=== PATIENT | male | born 2000 | race Hispanic/Latino ===

== ENCOUNTER 2019-01-22 07:54 | Day surgery (SDC) | payer OTHER ==
[2019-01-21 16:14] LABS: BASOPHILS % (AUTO) 0.3 % (0.0-5.0); EOSINOPHILS % (AUTO) 3.3 % (0.0-8.0); HEMATOCRIT 44.6 % (42-54); LYMPHOCYTES % (AUTO) 22.6 % (21.0-51.0); MEAN CORPUSCULAR HEMOGLOBIN 28.3 pg (27.0-33.0); MEAN CORPUSCULAR HGB CONC 33.8 g/dL (32.0-36.0); MEAN CORPUSCULAR VOLUME 83.9 fL (80-100); MONOCYTES % (AUTO) 8.4 % (3.0-13.0); NEUTROPHILS % (AUTO) 65.4 % (40.0-77.0); PLATELET COUNT (AUTO) 205 K/uL (130-400); RED BLOOD CELL COUNT(AUTO) 5.32 MIL/uL (4.50-6.20); RED CELL DISTRIBUTION WIDTH 13.6 % (11.0-15.5); WHITE BLOOD COUNT (AUTO) 9.1 K/uL (4.8-10.8)
[2019-01-21 16:23] LABS: CREATININE 1.1 mg/dL (0.5-1.5); POTASSIUM 4.6 mmol/L (3.5-5.1)
[2019-01-21 17:11] VITALS: BP 136/64
[~2019-01-22] VITALS: Ht 162.6 cm; Wt 97.3 kg
[2019-01-22] VITALS (17 sets, daily range): BP systolic 98–144; BP diastolic 46–86
[2019-01-22] MEDS: CEFAZOLIN SODIUM 1 GM VIAL IVP SCH ×2 (10:00→13:00)
[2019-01-22] MEDS ORDERED: LACTATED RINGERS 1000ML 1,000 ML IV ONE (10:17)
[2019-01-22] MEDS ORDERED: FENTANYL CITRATE PF 50 MCG/1 ML 2ML VIAL ONE ×2 (10:53→14:39)
[2019-01-22] MEDS ORDERED: PROPOFOL 10 MG/ML 20ML VIAL IV ONE (10:53)
[2019-01-22] MEDS ORDERED: LIDOCAINE PF 2% 5ML ABBOJECT ONE (10:53)
[2019-01-22] MEDS ORDERED: ROPIVACAINE 0.5% 5MG/ML 30ML IJ ONE (10:53)
[2019-01-22] MEDS ORDERED: CEFAZOLIN SODIUM 1 GM VIAL ONE (11:08)
[2019-01-22] MEDS ORDERED: BUPIVACAINE/EPI/PF 0.25% 30ML VIAL IJ ONE (11:08)
[2019-01-22] MEDS ORDERED: NAPR375T6 PO (14:58)
[2019-01-22] MEDS ORDERED: CEPH500B PO (14:58)
[2019-01-22] MEDS ORDERED: HYDR-4457 PO (14:58)
[2019-01-22] MEDS ORDERED: MEPERIDINE-PF 25 MG/ML SYG ONE (15:32)
[2019-01-22] MEDS ORDERED: ONDANSETRON HCL 4 MG/2 ML VIAL ONE (15:38)
== END 2019-01-22 17:05 | disposition home or self-care (01) ==
LOC: DAH 07:54
PROVIDERS: ATTEND Orthopaedic Surgery
DX: M23.612 Other spontaneous disruption of anterior cruciate ligament of left knee (principal); M23.8X2 Other internal derangements of left knee; M23.252 Derangement of posterior horn of lateral meniscus due to old tear or injury, left knee; K21.9 Gastro-esophageal reflux disease without esophagitis; Z79.1 Long term (current) use of non-steroidal anti-inflammatories (NSAID); Z79.899 Other long term (current) drug therapy; Z98.890 Other specified postprocedural states; Z83.3 Family history of diabetes mellitus; Z82.49 Family history of ischemic heart disease and other diseases of the circulatory system
CPT/HCPCS: 36415; 80048; 85025; J0690; J2001; J2175; J2405; J2704; J2795; J3010; J3490; J7030; J7120